=== PATIENT | female | born 1960 | race Caucasian/White ===

== ENCOUNTER 2022-05-10 13:59 | Outpatient (CLI) | payer BC | END 2022-05-10 14:00 | disposition home or self-care (01) | LOC: LAB.S 13:59 | PROVIDERS: ATTEND Nurse Practitioner Family | DX: G44.89 Other headache syndrome (principal); M79.7 Fibromyalgia; M25.552 Pain in left hip; G58.8 Other specified mononeuropathies; Z79.891 Long term (current) use of opiate analgesic; G89.29 Other chronic pain; D86.9 Sarcoidosis, unspecified; G43.801 Other migraine, not intractable, with status migrainosus; M25.532 Pain in left wrist; M25.531 Pain in right wrist | CPT/HCPCS: 81599 ==

== ENCOUNTER 2022-12-26 10:45 | Outpatient (CLI) | payer BC | END 2022-12-26 10:46 | disposition home or self-care (01) | LOC: LAB.S 10:45 | PROVIDERS: ATTEND Nurse Practitioner Family | DX: M54.12 Radiculopathy, cervical region (principal); G44.89 Other headache syndrome; M79.7 Fibromyalgia; M25.552 Pain in left hip; Z79.891 Long term (current) use of opiate analgesic; M54.16 Radiculopathy, lumbar region; G89.29 Other chronic pain; D86.9 Sarcoidosis, unspecified; G43.801 Other migraine, not intractable, with status migrainosus; M25.532 Pain in left wrist; M25.531 Pain in right wrist | CPT/HCPCS: 81599 ==

== ENCOUNTER 2023-06-26 14:04 | Outpatient (CLI) | payer BC | END 2023-06-26 14:05 | disposition home or self-care (01) | LOC: LAB.S 14:04 | PROVIDERS: ATTEND Nurse Practitioner Family | DX: M54.12 Radiculopathy, cervical region (principal); G44.89 Other headache syndrome; M79.7 Fibromyalgia; M25.552 Pain in left hip; Z79.891 Long term (current) use of opiate analgesic; M54.16 Radiculopathy, lumbar region; G89.29 Other chronic pain; D86.9 Sarcoidosis, unspecified; G43.801 Other migraine, not intractable, with status migrainosus; M25.532 Pain in left wrist; M25.531 Pain in right wrist | CPT/HCPCS: 81599 ==

== ENCOUNTER 2023-10-30 08:00 | Outpatient (CLI) | payer BC | END 2023-10-30 23:59 | disposition home or self-care (01) | LOC: LAB.S 08:00 | PROVIDERS: ATTEND Registered Nurse | DX: R30.0 Dysuria (principal); R10.9 Unspecified abdominal pain; R33.9 Retention of urine, unspecified | CPT/HCPCS: 87086 ==